=== PATIENT | female | born 1955 | race Caucasian/White ===

== ENCOUNTER 2019-09-01 05:50 | Day surgery (SDC) | payer MEDICARE, BC ==
[~2019-09-01] VITALS: Ht 167.6 cm; Wt 111.0 kg
[2019-09-01] MEDS ORDERED: LACTATED RINGERS 1,000 ML IV SCH (06:44)
[2019-09-01] MEDS ORDERED: ACET325T14 PO (06:47)
[2019-09-01] MEDS ORDERED: ASPI-496 PO (06:47)
[2019-09-01] MEDS ORDERED: CHOL10002 PO (06:50)
[2019-09-01] MEDS ORDERED: CARV3.1212 PO (06:50)
[2019-09-01] MEDS ORDERED: LISI2.5T PO (06:50)
[2019-09-01] MEDS ORDERED: FLUO20CA8 PO (06:50)
[2019-09-01 06:57] VITALS: BP 90/66
[2019-09-01] MEDS ORDERED: FENTANYL PF 100 MCG/2ML ONE ×2 (07:04→09:07)
[2019-09-01] MEDS ORDERED: DEXAMETHASONE 4 MG/ML, 1ML ONE ×2 (07:07)
[2019-09-01] MEDS ORDERED: SUCCINYLCHOLINE 20 MG/ML, 10ML ONE (07:07)
[2019-09-01] MEDS ORDERED: LIDOCAINE-MPF 2% ,5ML ONE (07:07)
[2019-09-01 07:15] LABS: ALBUMIN 2.2 g/dL (3.4-5.0); ANION GAP 9 mmol/L (5-15); CALCIUM 8.7 mg/dL (8.5-10.1); CHLORIDE 103 mmol/L (98-107)
[2019-09-01 07:27] LABS: ALANINE AMINOTRANSFERASE 186 U/L (12-78); ALKALINE PHOSPHATASE 692 U/L (45-117)
[2019-09-01] MEDS ORDERED: HYDROmorphone 2 MG/ML, 1ML IVPush PRN (07:30)
[2019-09-01] MEDS ORDERED: ONDANSETRON 2MG/ML, 2ML IV PRN (07:30)
[2019-09-01] MEDS ORDERED: hydrALAzine 20 MG/ML, 1ML IV PRN (07:30)
[2019-09-01] MEDS ORDERED: MEPERIDINE/PF 25MG/ML,1ML IVPush PRN (07:30)
[2019-09-01] MEDS ORDERED: HYDROcodone/APAP 7.5-325MG/15ML UDC PO PRN (07:30)
[2019-09-01] MEDS ORDERED: FENTANYL PF 100 MCG/2ML IV PRN (07:30)
[2019-09-01] MEDS ORDERED: LABETALOL 5MG/ML, 20ML IV PRN (07:30)
[2019-09-01] MEDS ORDERED: EPHEDRINE 50 MG/ML, 1ML IVPush PRN (07:30)
[2019-09-01] MEDS ORDERED: PHENYLEPHRINE 10 MG/ML ONE (07:34)
[2019-09-01] MEDS ORDERED: PROPOFOL 10 MG/ML, 20ML ONE (07:34)
[2019-09-01] MEDS ORDERED: EPHEDRINE 50 MG/ML, 1ML ONE (07:34)
[2019-09-01] MEDS ORDERED: GLYCOPYRROLATE 0.2MG/1ML, 5ML ONE ×2 (07:34→08:14)
[2019-09-01 08:06] LABS: TOTAL PROTEIN 6.3 g/dL (6.4-8.2)
[2019-09-01 08:11] LABS: BILIRUBIN,TOTAL 26.3 mg/dL (0.2-1.0)
[2019-09-01] MEDS ORDERED: ONDANSETRON 2MG/ML, 2ML ONE (08:58)
[2019-09-01] MEDS ORDERED: CEFAZOLIN 1,000 MG ONE ×2 (09:09)
[2019-09-01] MEDS ORDERED: SODIUM CHLORIDE 0.9% PF 10ML ONE (09:09)
[2019-09-01] MEDS ORDERED: OMNIPAQUE 350 MG/ML, 50 ML BOTTLE ONE (09:28)
== END 2019-09-01 11:10 | disposition home or self-care (01) ==
LOC: OUT 05:50 → EDBD 07:30 → OUT 11:10
PROVIDERS: ATTEND Internal Medicine
DX: K86.89 Other specified diseases of pancreas (principal); C25.0 Malignant neoplasm of head of pancreas; C77.2 Secondary and unspecified malignant neoplasm of intra-abdominal lymph nodes; K80.21 Calculus of gallbladder without cholecystitis with obstruction; I10 Essential (primary) hypertension; Z79.82 Long term (current) use of aspirin; Z87.891 Personal history of nicotine dependence; Z79.899 Other long term (current) drug therapy; Z88.2 Allergy status to sulfonamides; Z88.8 Allergy status to other drugs, medicaments and biological substances; Z86.73 Personal history of transient ischemic attack (TIA), and cerebral infarction without residual deficits; Z98.890 Other specified postprocedural states; Z83.3 Family history of diabetes mellitus; Z80.9 Family history of malignant neoplasm, unspecified
CPT/HCPCS: 36415; 43242; 43274; 74328; 80053; 88172; 88173; 88305; 88307; 93005; C1769; C1876; J0330; J0690; J1100; J2370; J2405; J2704; J3010; J7120; Q9967

== ENCOUNTER 2019-09-05 02:40 | Inpatient (IN) | payer MEDICARE, BC ==
[~2019-09-05] VITALS: Ht 167.6 cm; Wt 128.0 kg
[~2019-09-05 02:40] MED LIST: ACET325T14 PO; ASPI-496 PO; CARV3.1212 PO; CHOL10002 PO; FLUO20CA8 PO; LISI2.5T PO
[2019-09-05] MEDS ORDERED: ONDANSETRON 2MG/ML, 2ML IVPush PRN ×2 (04:00→05:30)
[2019-09-05] MEDS ORDERED: MORPHINE SULFATE 4 MG/ML, 1ML IVPush PRN (04:00)
--- NOTE | 2019-09-05 04:05 | NUR ---
REPORT TO MARTIN VILLEGAS
[2019-09-05 04:58] VITALS: BP 92/51
[2019-09-05] MEDS ORDERED: SODIUM CHLORIDE 0.9% 1,000ML IVBOLUS ONE (05:00)
[2019-09-05] MEDS ORDERED: ACETAMINOPHEN 325 MG TABLET PO PRN (05:30)
[2019-09-05] MEDS ORDERED: morphine SULFATE 10 MG/ML, 1ML IVPush PRN (05:30)
[2019-09-05] MEDS ORDERED: POLYETHYLENE GLYCOL 17 GM PACKET PO PRN (05:30)
[2019-09-05] MEDS ORDERED: BISACODYL 10 MG SUPP PR PRN (05:30)
[2019-09-05] MEDS: LACTATED RINGERS 1,000 ML IV SCH ×2 (06:05→17:00)
[2019-09-05] MEDS: HEPARIN 5,000 UNITS/ML, 1ML SQ SCH ×3 (06:05→22:26)
[2019-09-05 07:18] VITALS: BP 109/69
[2019-09-05] MEDS: FLUOXETINE HCL 20 MG CAPSULE PO SCH (09:00)
[2019-09-05] MEDS: SENNA/DOCUSATE TABLET PO SCH (09:00)
[2019-09-05 10:54] LABS: MEAN CORPUSCULAR HGB CONC 33.6 g/dL (32.4-35.8); MEAN CORPUSCULAR VOLUME 98.2 fL (80-100); MEAN PLATELET VOLUME 11.5 fL (7.4-10.4); PLATELET COUNT 246 x10^3/uL (130-400); RED CELL DISTRIBUTION WIDTH 17.5 % (9.6-15.2)
[2019-09-05 11:05] LABS: ALANINE AMINOTRANSFERASE 119 U/L (12-78); ALBUMIN 1.5 g/dL (3.4-5.0); ANION GAP 11 mmol/L (5-15); CALCIUM 7.5 mg/dL (8.5-10.1); CHLORIDE 109 mmol/L (98-107)
[2019-09-05 11:07] LABS: ALKALINE PHOSPHATASE 602 U/L (45-117)
[2019-09-05 11:16] LABS: BILIRUBIN,TOTAL 20.4 mg/dL (0.2-1.0); TOTAL PROTEIN 4.8 g/dL (6.4-8.2)
[2019-09-05 11:24] LABS: MD YES
[2019-09-05 11:44] LABS: <PLATELET ESTIMATE> ADEQUATE; ANISOCYTOSIS 1+; BAND#(MANUAL) 0.33 x10^3/uL; BANDS%(MANUAL) 2 % (0-7); LARGE PLATELETS 1+; LYMPH#(MANUAL) 0.66 x10^3/uL (1-3.4); LYMPHS% (MANUAL) 4 % (22-44); METAMYELOCYTES# (MANUAL) 0.33 x10^3/uL (0-0); METAMYELOCYTES% (MANUAL) 2 % (0-1); MONOS% (MANUAL) 6 % (2-9); MYELOCYTES# (MANUAL) 0.17 x10^3/uL (0-0); MYELOCYTES% (MANUAL) 1 % (0-0); SEG#(MANUAL) 14.11 x10^3/uL (1.8-6.8); SEGS% (MANUAL) 85 % (42-75)
[2019-09-05 15:23] VITALS: BP 91/58
[2019-09-05 18:33] VITALS: BP 86/50
[2019-09-05] MEDS ORDERED: PHARMACY MAY ADJ FOR RENAL FX MC PRN (19:00)
[2019-09-05 20:19] VITALS: BP 98/51
[2019-09-05] MEDS: PIPERACILLIN/TAZO/PMX 3.375GM 50 ML IV SCH (20:19)
[2019-09-06 00:37] VITALS: BP 95/46
[2019-09-06] MEDS: PIPERACILLIN/TAZO/PMX 3.375GM 50 ML IV SCH ×2 (01:36→09:37)
[2019-09-06] MEDS: LACTATED RINGERS 1,000 ML IV SCH (01:37)
[2019-09-06 04:31] LABS: MEAN CORPUSCULAR HGB CONC 34.2 g/dL (32.4-35.8); MEAN CORPUSCULAR VOLUME 96.6 fL (80-100); MEAN PLATELET VOLUME 10.9 fL (7.4-10.4); PLATELET COUNT 231 x10^3/uL (130-400); RED BLOOD COUNT 3.64 x10^6/uL (3.82-5.3); RED CELL DISTRIBUTION WIDTH 17.3 % (9.6-15.2)
[2019-09-06 04:42] LABS: CHLORIDE 106 mmol/L (98-107)
[2019-09-06 04:48] LABS: ALANINE AMINOTRANSFERASE 102 U/L (12-78); ALBUMIN 1.3 g/dL (3.4-5.0); ALKALINE PHOSPHATASE 598 U/L (45-117); ANION GAP 9 mmol/L (5-15); CALCIUM 7.7 mg/dL (8.5-10.1)
[2019-09-06 04:49] LABS: CREATININE 2.64 mg/dL (0.55-1.02)
[2019-09-06 04:50] LABS: TOTAL PROTEIN 4.6 g/dL (6.4-8.2)
[2019-09-06 04:51] LABS: BILIRUBIN,TOTAL 19.9 mg/dL (0.2-1.0)
[2019-09-06 05:59] LABS: MD YES
[2019-09-06 06:01] LABS: <PLATELET ESTIMATE> ADEQUATE; ANISOCYTOSIS 1+; BAND#(MANUAL) 0.25 x10^3/uL; BANDS%(MANUAL) 2 % (0-7); LARGE PLATELETS 1+; LYMPH#(MANUAL) 0.25 x10^3/uL (1-3.4); LYMPHS% (MANUAL) 2 % (22-44); MONOS#(MANUAL) 0.25 x10^3/uL (0.3-2.7); MONOS% (MANUAL) 2 % (2-9); MYELOCYTES# (MANUAL) 0.25 x10^3/uL (0-0); MYELOCYTES% (MANUAL) 2 % (0-0); SEG#(MANUAL) 11.32 x10^3/uL (1.8-6.8); SEGS% (MANUAL) 92 % (42-75)
[2019-09-06] MEDS: HEPARIN 5,000 UNITS/ML, 1ML SQ SCH ×2 (06:09→14:30)
[2019-09-06 06:24] VITALS: BP 102/54
[2019-09-06] MEDS: FLUOXETINE HCL 20 MG CAPSULE PO SCH (09:37)
[2019-09-06] MEDS: SENNA/DOCUSATE TABLET PO SCH (09:37)
[2019-09-06 13:38] VITALS: BP 103/51
[2019-09-06] MEDS: PIPERACILLIN/TAZO/PMX 2.25GM 50 ML IVPB SCH ×2 (16:08→23:03)
[2019-09-06 19:51] VITALS: BP 84/43
[2019-09-07 02:19] VITALS: BP 96/49
[2019-09-07 06:35] VITALS: BP 105/69
[2019-09-07] MEDS: PIPERACILLIN/TAZO/PMX 2.25GM 50 ML IVPB SCH ×2 (08:03→18:02)
[2019-09-07] MEDS: FLUOXETINE HCL 20 MG CAPSULE PO SCH (08:03)
[2019-09-07] MEDS: SENNA/DOCUSATE TABLET PO SCH (08:03)
[2019-09-07 14:51] VITALS: BP 97/52
[2019-09-07 19:41] VITALS: BP 89/49
[2019-09-08] MEDS: PIPERACILLIN/TAZO/PMX 2.25GM 50 ML IVPB SCH ×2 (01:00→08:40)
[2019-09-08 01:01] VITALS: BP 89/49
[2019-09-08 06:33] VITALS: BP 92/56
[2019-09-08 06:49] VITALS: BP 78/45
[2019-09-08] MEDS: SENNA/DOCUSATE TABLET PO SCH (08:40)
[2019-09-08] MEDS: FLUOXETINE HCL 20 MG CAPSULE PO SCH (08:40)
[2019-09-08] MEDS ORDERED: AMOX250S20 PO (10:16)
[2019-09-08 12:39] VITALS: BP 98/60
== END 2019-09-08 15:19 | disposition hospice, home (50) | DRG 871 ==
LOC: ED 03:44 → EDIP 03:47 → 4NW 05:05
PROVIDERS: ADMIT Family Medicine; ATTEND Hospitalist
DX: A41.9 Sepsis, unspecified organism (principal); G93.41 Metabolic encephalopathy; E43 Unspecified severe protein-calorie malnutrition; K83.1 Obstruction of bile duct; C25.9 Malignant neoplasm of pancreas, unspecified; N17.9 Acute kidney failure, unspecified; N39.0 Urinary tract infection, site not specified; E87.1 Hypo-osmolality and hyponatremia; I69.354 Hemiplegia and hemiparesis following cerebral infarction affecting left non-dominant side; Z68.42 Body mass index [BMI] 45.0-49.9, adult; C78.89 Secondary malignant neoplasm of other digestive organs; I50.9 Heart failure, unspecified; E03.9 Hypothyroidism, unspecified; I11.0 Hypertensive heart disease with heart failure; I69.320 Aphasia following cerebral infarction; Z66 Do not resuscitate; E66.9 Obesity, unspecified; R62.7 Adult failure to thrive; Z51.5 Encounter for palliative care; Z80.1 Family history of malignant neoplasm of trachea, bronchus and lung; Z85.07 Personal history of malignant neoplasm of pancreas; Z85.3 Personal history of malignant neoplasm of breast; Z87.891 Personal history of nicotine dependence
CPT/HCPCS: 36415; 70450; 71045; 76700; 80053; 81001; 82140; 82533; 82607; 83690; 83735; 83880; 84100; 84443; 84484; 85025; 85610; 85730; 87086; 93005; 96360; 96361; 99285; 99291; G0378; J1644; J2543; J7030; J7120